=== PATIENT | male | born 1950 ===

== ENCOUNTER 2018-04-01 17:01 | Emergency (ER) | payer MEDICARE ==
[2018-04-01 17:13] VITALS: RESP 18; TEMP 97.9
[2018-04-01 18:03] LABS: BASO # 0.1 K/uL (0.0-0.2); EOS # 0.1 K/uL (0.0-0.7); EOS % 1.1 % (0.0-4.0); HEMOGLOBIN 15.1 g/dL (12.0-18.0); LYMPH # 1.7 K/uL (1.0-4.3); LYMPH % 16.6 % (20.0-40.0); MEAN CELL VOLUME 83.1 fl (80.0-94.0); MEAN CORPUSCULAR HEMOGLOBIN 28.3 pg (27.0-31.0); MEAN CORPUSCULAR HGB CONC 34.1 g/dL (33.0-37.0); MEAN PLATELET VOLUME 7.3 fl (7.2-11.7); MONO # 0.7 K/uL (0.0-0.8); MONO % 7.5 % (0.0-10.0); NEUT # 7.4 K/uL (1.8-7.0); NEUT % 73.8 % (50.0-75.0); NRBC % 0.1 % (0.0-0.0); RBC 5.32 Mil/uL (4.40-5.90)
[2018-04-01] MEDS ORDERED: Sodium Chloride 0.9% 1,000 ML IV STA (18:05)
[2018-04-01 18:16] LABS: ALB/GLOB RATIO 1.4 (1.0-2.1); ALBUMIN 4.6 g/dL (3.5-5.0); ALT/SGPT 25 U/L (21-72); AST/SGOT 31 U/L (17-59); BLOOD UREA NITROGEN 28 mg/dl (9-20); CALCIUM 10.1 mg/dL (8.4-10.2); GFR NON-AFRICAN AMERICAN 50
--- NOTE | 2018-04-01 19:35 | ED PDOC ---
Syncope/Near Syncope/Dizziness Time Seen by Provider: 04/01/18 17:10 Chief Complaint (Nursing): Dizziness/Lightheaded Chief Complaint (Provider): Dizziness/Lightheaded History Per: Patient History/Exam Limitations: no limitations Onset/Duration Of Symptoms: Days (x3) Current Symptoms Are (Timing): Still Present Additional Complaint(s): 68 year old male with pmHx of HTN and HCL, arrives to ED for an evaluation of non-vertiginous dizziness exacerbated when he gets up for the last 3 days. He denies any chest pain, shortness of breath, headaches, focal weakness, visual changes, current URI symptoms, or change in diet. Patient was seen at PMD's office earlier today as another near-syncope episode occurred. He was noted to be hypotensive with tachycardia. PMD: Dr. Bao Ramey Past Medical History Reviewed: Historical Data, Nursing Documentation, Vital Signs Vital Signs: Last Vital Signs Temp 97.9 F 04/01/18 17:10 Pulse 92 H 04/01/18 17:10 Resp 18 04/01/18 17:10 BP 116/67 04/01/18 17:10 Pulse Ox 100 04/01/18 17:10 - Medical History PMH: HTN, Hypercholesterolemia - Surgical History Surgical History: No Surg Hx - Family History Family History: States: Hypertension - Social History Current smoker - smoking cessation education provided: No Ex-Smoker (has not smoked in the last 12 months): No Alcohol: None Drugs: Denies - Home Medications Home Medications: Ambulatory Orders Medication Instructions Recorded Aspirin [Ecotrin] 81 mg PO DAILY 04/01/18 Canagliflozin/Metformin HCl 1 tab PO BID 04/01/18 [Invokamet 150-1,000 mg Tablet] Ibuprofen [Motrin Tab] 800 mg PO Q8 PRN 04/01/18 Insulin Glargine, Recombina 40 unit SC HS 04/01/18 [Lantus] Losartan [Cozaar] 50 mg PO DAILY 04/01/18 Rosuvastatin Calcium [Crestor] 40 mg PO DAILY 04/01/18 SITagliptin [Januvia] 100 mg PO DAILY 04/01/18 Tamsulosin [Flomax] 0.4 mg PO DAILY 04/01/18 - Allergies Allergies/Adverse Reactions: Allergies Allergy/AdvReac Type Severity Reaction Status Date / Time No Known Allergies Allergy Verified 04/01/18 17:10 Review of Systems ROS Statement: Except As Marked, All Systems Reviewed And Found Negative Eyes: Negative for: Vision Change Cardiovascular: Negative for: Chest Pain Respiratory: Negative for: Shortness of Breath Neurological: Positive for: Dizziness (non-vertiginous). Negative for: Weakness (focal), Headache Physical Exam - Reviewed Nursing Documentation Reviewed: Yes Vital Signs Reviewed: Yes - Physical Exam Appears: Positive for: Non-toxic, No Acute Distress Head Exam: Positive for: ATRAUMATIC, NORMOCEPHALIC Skin: Positive for: Warm, Dry Eye Exam: Positive for: EOMI, PERRL ENT: Negative for: Pharyngeal Erythema, Tonsillar Exudate Neck: Positive for: Painless ROM, Supple Cardiovascular/Chest: Positive for: Regular Rate, Rhythm. Negative for: Murmur Respiratory: Positive for: Normal Breath Sounds. Negative for: Respiratory Distress Gastrointestinal/Abdominal: Positive for: Soft. Negative for: Tenderness Back: Positive for: Normal Inspection. Negative for: Decreased ROM Extremity: Positive for: Normal ROM. Negative for: Deformity Lymphatic: Negative for: Adenopathy Neurologic/Psych: Positive for: Alert. Negative for: Motor/Sensory Deficits - Laboratory Results Result Diagrams: 04/01/18 17:50 04/01/18 17:50 - ECG ECG: Positive for: Interpreted By Me ECG Rhythm: Positive for: Normal QRS, Normal ST Segment, Sinus Rhythm O2 Sat by Pulse Oximetry: 100 (RA) Pulse Ox Interpretation: Normal - Progress Re-evaluation Time: 21:34 Condition: Improved Medical Decision Making Medical Decision Making: Initial Impression: Lightheadedness Differential diagnosis includes but not limited to: electrolyte abnormality, thyroid disorder, adrenal insufficiency Initial Plan: * Labs * EKG * Accucheck * IV fluids * Blood culture * Urine culture Time: 1800 --EKG: NSR at [address] changes. Normal QRS. Pt orthostatic. 2100 Repeat orthostatic vitals demonstrate improvement Labs demonstrated elevated lactic acid, elevated glucose, and elevated BUN. Pt has no source for infection and has no infectious complaints. Findings most c/w dehydration. Pt eager to go home. Stable for discharge. Scribe Attestation: Documented by Tory Thomson, acting as a scribe for Karie Keita MD. Provider Scribe Attestation: All medical record entries made by the Scribe were at my direction and personally dictated by me. I have reviewed the chart and agree that the record accurately reflects my personal performance of the history, physical exam, medical decision making, and the department course for this patient. I have also personally directed, reviewed, and agree with the discharge instructions and disposition. Disposition - Clinical Impression Clinical Impression: Dehydration, Hypovolemia Discussed With Dr.: Bao Ramey Doctor Will See Patient In The: Office Counseled Patient/Family Regarding: Studies Performed, Diagnosis, Need For Followup - Disposition Disposition: Routine/Home Disposition Time: 21:36 Condition: IMPROVED Additional Instructions: YOU NEED TO DRINK MORE WATER (NOT SODA.) FOLLOW UP WITH DR RAMEY NEXT WEEK AVOID STRENUOUS ACTIVITY FOR NOW. RETURN TO ER FOR WORSENING SYMPTOMS. Instructions: Dehydration, Adult (DC) Forms: Loop ([employer])
[2018-04-01 19:37] LABS: PROTHROMBIN TIME 11.9 Seconds (9.8-13.1)
[2018-04-01 20:07] LABS: URINE BILIRUBIN NEGATIVE (NEGATIVE); URINE BLOOD SMALL (NEGATIVE); URINE CLARITY SLIGHTY-CLOUDY (Clear); URINE COLOR YELLOW (YELLOW); URINE GLUCOSE (UA) >=500 mg/dL (Normal); URINE HYALINE CAST 0-2 /hpf (0-2); URINE LEUKOCYTE ESTERASE NEG Leu/uL (Negative); URINE PROTEIN 100 mg/dL (NEGATIVE); URINE UROBILINOGEN 0.2-1.0 mg/dL (0.2-1.0)
[2018-04-01 22:15] VITALS: BP 126/70; PULSE 79; O2SAT 99
--- NOTE | 2018-04-02 12:03 | CARD ---
APPROVED REPORT Date of service: 04/01/2018 EKG Measurement Heart [id number] <Conclusion> Normal sinus rhythm Nonspecific ST changes Abnormal ECG
== END 2018-04-01 22:00 | disposition home or self-care (01) ==
LOC: H.ER 17:01
DX: E86.0 Dehydration (principal); E86.1 Hypovolemia; E78.00 Pure hypercholesterolemia, unspecified; I10 Essential (primary) hypertension; Z79.4 Long term (current) use of insulin; E11.65 Type 2 diabetes mellitus with hyperglycemia
CPT/HCPCS: 80053; 81003; 82948; 83605; 83735; 84100; 84443; 84484; 85025; 85610; 85730; 86850; 86900; 87040; 87086; 93005; 96360; 99284; J7030